=== PATIENT | female | born 1970 | race Caucasian/White ===

== ENCOUNTER 2023-10-16 10:48 | Emergency (ER) | payer MEDICARE, BC ==
[~2023-10-16] VITALS: Ht 172.7 cm; Wt 60.5 kg
[2023-10-16] MEDS ORDERED: NALTREX4.5 MG PO (10:57)
[2023-10-16] MEDS ORDERED: PILOCARPINE HYDR5 MG PO (10:57)
[2023-10-16] MEDS ORDERED: VALACYCLOVIR500 MG (10:58)
[2023-10-16] MEDS ORDERED: CYCLOBENZ5 MG PO (10:58)
[2023-10-16] MEDS ORDERED: PRAMIPEXOLE0.125 MG PO (10:59)
[2023-10-16 11:28] LABS: BASO # 0.02 K/mm3 (0.02-0.10); EOS # 0.14 K/mm3 (0.04-0.40); EOS % 2.1 % (1.0-5.0); HEMATOCRIT 36.5 % (37.0-47.0); HEMOGLOBIN 11.9 g/dL (12.5-16.0); LYMPH# 2.01 K/mm3 (1.50-4.00); MEAN CELL VOLUME 97 fl (78-100); MEAN CORPUSCULAR HEMOGLOBIN 32 pg (27-31); MEAN CORPUSCULAR HGB CONC 33 g/dL (33-37); MEAN PLATELET VOLUME 9.8 fl (7.4-10.4); MONO # 0.48 K/mm3 (0.20-0.80); NEU # 4.03 K/mm3 (1.40-6.50); PLATELET COUNT 291 K/mm3 (130-400); RED BLOOD COUNT 3.78 M/mm3 (4.10-5.30); WHITE BLOOD COUNT 6.7 K/mm3 (4.8-10.8)
[2023-10-16 11:36] LABS: ALBUMIN 4.1 g/dL (3.5-5.0)
[2023-10-16 11:37] LABS: CALCIUM 9.3 mg/dL (8.3-10.5)
[2023-10-16 11:38] LABS: TOTAL PROTEIN 6.9 g/dL (6.4-8.3)
[2023-10-16 11:40] LABS: TOTAL BILIRUBIN 0.2 mg/dL (0.2-1.2)
[2023-10-16 11:46] LABS: D-DIMER 0.37 mg/L FEU (0.15-0.50)
[2023-10-16] MEDS ORDERED: Iohexol 300 - 100 ML VIAL IV ONE (12:06)
[2023-10-16 12:30] LABS: URINE APPEARANCE SLIGHTLY CLOUDY (CLEAR); URINE COLOR YELLOW (YELLOW)
[2023-10-16 12:38] LABS: PH-URINE 6.5 (5.0 - 8.0); URINE BILIRUBIN NEGATIVE (NEGATIVE); URINE BLOOD NEGATIVE (NEGATIVE); URINE GLUCOSE NEGATIVE (NEGATIVE); URINE KETONE NEGATIVE (NEGATIVE); URINE LEUKOCYTE ESTERASE 1+ (NEGATIVE); URINE NITRATE NEGATIVE (NEGATIVE); URINE PROTEIN(semi-quant) NEGATIVE (NEGATIVE)
[2023-10-16] MEDS ORDERED: Ketorolac 30 MG/ML VIAL IV ONE (12:45)
[2023-10-16] MEDS ORDERED: cefTRIAXone 1 G in Water For Injection,Sterile 10 ML IV ONE (13:00)
[2023-10-16] MEDS ORDERED: MACROBID 100 M100 MG PO (13:02)
[2023-10-16 13:33] VITALS: BP 104/63
== END 2023-10-16 13:35 | disposition home or self-care (01) ==
LOC: ED 10:48
PROVIDERS: Family Medicine
DX: M54.50 Low back pain, unspecified (principal); N39.0 Urinary tract infection, site not specified; Z88.0 Allergy status to penicillin
CPT/HCPCS: J0696; J1885; Q9967